=== PATIENT | male | born 1940 | race Caucasian/White ===

== ENCOUNTER → 2018-01-13 | Outpatient (CLI) | payer MEDICARE, OTHER | LOC: RAH 12:48 | PROVIDERS: ATTEND Internal Medicine | DX: N32.89 Other specified disorders of bladder (principal); Z85.528 Personal history of other malignant neoplasm of kidney; Z90.5 Acquired absence of kidney | CPT/HCPCS: 76770 ==

== ENCOUNTER → 2018-02-26 | Outpatient (CLI) | payer OTHER | END | disposition home or self-care (01) | LOC: STH 11:13 | PROVIDERS: ATTEND Internal Medicine Cardiovascular Disease | DX: I65.23 Occlusion and stenosis of bilateral carotid arteries (principal) | CPT/HCPCS: 93880 ==

== ENCOUNTER → 2019-04-23 | Outpatient (CLI) | payer OTHER | END | disposition home or self-care (01) | LOC: RAH 10:30 | PROVIDERS: ATTEND Urology | DX: C64.9 Malignant neoplasm of unspecified kidney, except renal pelvis (principal) | CPT/HCPCS: 76770 ==

== ENCOUNTER 2019-05-14 08:25 | Day surgery (SDC) | payer OTHER ==
[2019-05-12 15:13] VITALS: BP 124/65
[2019-05-12 15:13] LABS: BASOPHILS % (AUTO) 0.9 % (0.0-5.0); EOSINOPHILS % (AUTO) 2.7 % (0.0-8.0); LYMPHOCYTES % (AUTO) 17.7 % (21.0-51.0); MEAN CORPUSCULAR HEMOGLOBIN 30.7 pg (27.0-33.0); MEAN CORPUSCULAR HGB CONC 33.4 g/dL (32.0-36.0); MEAN CORPUSCULAR VOLUME 91.8 fL (79-99); MONOCYTES % (AUTO) 7.1 % (3.0-13.0); NEUTROPHILS % (AUTO) 71.6 % (40.0-77.0); NUCLEATED RED BLOOD CELLS 0.1 % (0.0-0.19); PLATELET COUNT (AUTO) 254 K/uL (130-400); RED BLOOD CELL COUNT(AUTO) 4.69 MIL/uL (4.50-6.20); RED CELL DISTRIBUTION WIDTH 14.5 % (11.0-15.5); WHITE BLOOD COUNT (AUTO) 8.5 K/uL (4.8-10.8)
[2019-05-12 15:27] LABS: CREATININE 1.4 mg/dL (0.5-1.5); POTASSIUM 4.5 mmol/L (3.5-5.1)
[2019-05-12 16:56] VITALS: BP 152/83
--- NOTE | 2019-05-13 13:20 | NUR ---
LABS ABNORMAL LABS FAXED TO DR. TAYLOR, NO FURTHER ORDERS GIVEN
[2019-05-14] VITALS (12 sets, daily range): BP systolic 127–168; BP diastolic 51–94
[~2019-05-14] VITALS: Ht 177.8 cm; Wt 134.3 kg
[~2019-05-14 08:25] MED LIST: ATORVASTA; CEFTRIAXONE SODIUM 1 GM IVP SCH; LISI-613 PO; [UNRECOGNIZED DRUG - OTHER]
[2019-05-14] MEDS ORDERED: LACTATED RINGERS 1000ML 1,000 ML IV ONE (09:36)
[2019-05-14] MEDS ORDERED: CEFTRIAXONE SODIUM 1 GM ONE (09:36)
[2019-05-14] MEDS ORDERED: ATOR40TA71 PO (10:24)
[2019-05-14] MEDS ORDERED: TAMS-1 PO (10:25)
[2019-05-14] MEDS ORDERED: LIDOCAINE PF 2% 5ML ABBOJECT ONE (11:05)
[2019-05-14] MEDS ORDERED: PROPOFOL 10 MG/ML 20ML VIAL IV ONE (11:05)
[2019-05-14] MEDS ORDERED: MIDAZOLAM HCL 1 MG/ML 2ML VIAL ONE (11:05)
[2019-05-14] MEDS ORDERED: FENTANYL CITRATE PF 50 MCG/1 ML 2ML VIAL ONE (11:05)
[2019-05-14] MEDS ORDERED: ONDANSETRON HCL 4 MG/2 ML VIAL ONE (11:05)
[2019-05-14] MEDS ORDERED: DEXAMETHASONE SOD PHOSPHATE 10MG/ML 1ML VIAL ONE (11:05)
[2019-05-14] MEDS ORDERED: ROCURONIUM 10MG/1ML SYR 10 MG/ML ML ONE (11:18)
[2019-05-14] MEDS ORDERED: OPIUM/BELLADONNA ALKALOIDS 1 EACH SUPP.RECT RC ONE (11:37)
[2019-05-14] MEDS ORDERED: NEOSTIGMINE 5MG/5ML SYR IV ONE (12:03)
[2019-05-14] MEDS ORDERED: GLYCOPYRROLATE 1 MG/5 ML SYRINGE ONE (12:03)
[2019-05-14] MEDS ORDERED: IPRATROPIUM/ALBUTEROL SULFATE 3 ML SOLUTION IH ONE (12:22)
[2019-05-14] MEDS ORDERED: METOCLOPRAMIDE 10 MG/2 ML VIAL ONE (12:38)
--- NOTE | 2019-05-14 13:00 | NUR ---
POST OP RECEIVED PT FROM PACU, S/P CYSTOSCOPY, DIRECT VISUL INTERNAL URETHROTOMY, TURP, PT ARRIVED WITH 18FREN[address] FC IN PLACE DRAINING RED COLOR URINE. DRESSING TO PENIS DRY AND INTACT, VS STABLE ON ARRIVAL.
[2019-05-14] MEDS ORDERED: PHENAZOPYRIDINE HCL 200 MG TABLET ONE (13:12)
--- NOTE | 2019-05-14 13:35 | NUR ---
DC DC INSTRUCTIONS GIVEN TO PT'S FRIEND DEENA WITH RX, INSTRUCTED ON F/U APPOINTMENT, NEW MEDS. AND LUNDBERG CARE. PT SEEMS ANXIOUS STATES "HE DIDN'T KNOW SURGERY WILL BE THIS UNCOMFORTABLE" . LUNDBERG LEG BAG IN PLACED. DRESSING TO PENIS AREA DRY AND INTACT, PIV REMOVED. PT WILL GET DRESS AND WILL BE DC HOME WITH FRIEND DEENA.
--- NOTE | 2019-05-14 13:40 | NUR ---
DC PT DC HOME VIA WC,NO DISTRESS NOTED. ACCOMPANIED BY HIS FRIEND TOM. LUNDBERG LEG BAG IN PLACE.
== END 2019-05-14 13:40 | disposition home or self-care (01) ==
LOC: DAH 08:25
PROVIDERS: ATTEND Urology
DX: N40.1 Benign prostatic hyperplasia with lower urinary tract symptoms (principal); N35.819 Other urethral stricture, male, unspecified site; R35.0 Frequency of micturition; I10 Essential (primary) hypertension; J44.9 Chronic obstructive pulmonary disease, unspecified; E66.9 Obesity, unspecified; Z68.41 Body mass index [BMI] 40.0-44.9, adult; Z85.528 Personal history of other malignant neoplasm of kidney; Z90.5 Acquired absence of kidney; Z79.899 Other long term (current) drug therapy; Z87.891 Personal history of nicotine dependence; Z98.890 Other specified postprocedural states
CPT/HCPCS: 36415; 52601; 80048; 85025; 88305; 93005; 94640; A4340; A4354; A4358; A4510; A4600; J0696; J1100; J2001; J2250; J2405; J2704; J2710; J2765; J3010; J3490; J7120 ×2

== ENCOUNTER 2020-10-20 10:19 | Emergency (ER) | payer OTHER ==
[~2020-10-20 10:19] MED LIST changes: +ATOR40TA71 PO; -ATORVASTA; -CEFTRIAXONE SODIUM 1 GM IVP SCH; +TAMS-1 PO; -[UNRECOGNIZED DRUG - OTHER]
== END 2020-10-20 11:45 | disposition home or self-care (01) ==
LOC: EDH 10:19
DX: R33.9 Retention of urine, unspecified (principal); I10 Essential (primary) hypertension; Z87.891 Personal history of nicotine dependence
CPT/HCPCS: 99281

== ENCOUNTER → 2021-02-26 | Outpatient (CLI) | payer OTHER ==
[~2021-02-26] MED LIST changes: -LISI-613 PO; +LISI20TA24 PO
[2021-02-26 11:47] LABS: CREATININE 1.5 mg/dL (0.5-1.5)
== END | disposition home or self-care (01) ==
LOC: LAB 11:02
PROVIDERS: ATTEND Internal Medicine Cardiovascular Disease
DX: I65.29 Occlusion and stenosis of unspecified carotid artery (principal); Z86.73 Personal history of transient ischemic attack (TIA), and cerebral infarction without residual deficits
CPT/HCPCS: 36415; 82565; 84520

== ENCOUNTER → 2021-04-12 | Outpatient (CLI) | payer OTHER ==
[~2021-04-12] VITALS: Ht 182.9 cm; Wt 127.0 kg
[~2021-04-12] MED LIST changes: +REGADENOSON 0.4 MG/5 ML PF SYG IVP SCH
== END | disposition home or self-care (01) ==
LOC: SHCH 08:38
PROVIDERS: ATTEND Internal Medicine Cardiovascular Disease
DX: I10 Essential (primary) hypertension (principal); R07.89 Other chest pain; R06.00 Dyspnea, unspecified; R10.9 Unspecified abdominal pain; R51.9 Headache, unspecified; M54.2 Cervicalgia
CPT/HCPCS: 78452; 93017; 96374; A9500 ×2

== ENCOUNTER 2021-05-03 08:43 | Emergency (ER) | payer OTHER ==
[~2021-05-03] VITALS: Ht 182.9 cm; Wt 129.3 kg
[~2021-05-03 08:43] MED LIST changes: +ASPI-1443 PO; +CLOP75TA32 PO; +LISI10TA24 PO; -LISI20TA24 PO; -REGADENOSON 0.4 MG/5 ML PF SYG IVP SCH; -TAMS-1 PO
[2021-05-03 08:48] VITALS: BP 108/60
[2021-05-03 09:34] LABS: BASOPHILS % (AUTO) 0.6 % (0.0-5.0); EOSINOPHILS % (AUTO) 6.9 % (0.0-8.0); HEMATOCRIT 32.7 % (42-54); LYMPHOCYTES % (AUTO) 15.3 % (21.0-51.0); MEAN CORPUSCULAR HEMOGLOBIN 29.8 pg (27.0-33.0); MEAN CORPUSCULAR HGB CONC 31.5 g/dL (32.0-36.0); MEAN CORPUSCULAR VOLUME 94.5 fL (79-99); MONOCYTES % (AUTO) 6.5 % (3.0-13.0); NEUTROPHILS % (AUTO) 70.1 % (40.0-77.0); PLATELET COUNT (AUTO) 198 K/uL (130-400); RED BLOOD CELL COUNT(AUTO) 3.46 MIL/uL (4.50-6.20); RED CELL DISTRIBUTION WIDTH 13.9 % (11.0-15.5); WHITE BLOOD COUNT (AUTO) 9.5 K/uL (4.8-10.8)
[2021-05-03 09:52] LABS: BILIRUBIN,TOTAL 0.7 mg/dL (0.2-1.0); CREATININE 1.5 mg/dL (0.5-1.5); INR 1.03 (0.85-1.15); POTASSIUM 4.5 mmol/L (3.5-5.1); PROTHROMBIN TIME 11.2 SEC (9.6-11.6); TOTAL PROTEIN, SERUM 6.4 g/dL (6.0-8.3)
== END 2021-05-03 16:49 | disposition home or self-care (01) ==
LOC: EDH 08:43
DX: I97.631 Postprocedural hematoma of a circulatory system organ or structure following cardiac bypass (principal); Z98.890 Other specified postprocedural states; Z79.82 Long term (current) use of aspirin; Z79.899 Other long term (current) drug therapy
CPT/HCPCS: 36415; 80053; 85025; 85610

== ENCOUNTER 2023-04-03 22:36 | Emergency (ER) | payer MEDICARE, OTHER ==
[~2023-04-03] VITALS: Ht 182.9 cm; Wt 123.4 kg
[2023-04-03] MEDS ORDERED: TAMSULOSIN HCL 0.4 MG CAP.ER.24H PO ONE (23:00)
[2023-04-03] MEDS ORDERED: TAMS-1 PO (23:00)
[2023-04-03 23:23] LABS: BASOPHILS % (AUTO) 0.9 % (0.0-5.0); EOSINOPHILS % (AUTO) 4.1 % (0.0-8.0); HEMATOCRIT 42.4 % (42-54); LYMPHOCYTES % (AUTO) 23.2 % (21.0-51.0); MEAN CORPUSCULAR HEMOGLOBIN 30.3 pg (27.0-33.0); MEAN CORPUSCULAR HGB CONC 32.8 g/dL (32.0-36.0); MEAN CORPUSCULAR VOLUME 92.6 fL (79-99); MONOCYTES % (AUTO) 8.2 % (3.0-13.0); NEUTROPHILS % (AUTO) 62.8 % (40.0-77.0); PLATELET COUNT (AUTO) 198 K/uL (130-400); RED BLOOD CELL COUNT(AUTO) 4.58 MIL/uL (4.50-6.20); RED CELL DISTRIBUTION WIDTH 13.7 % (11.0-15.5)
[2023-04-03 23:30] LABS: CREATININE 1.7 mg/dL (0.5-1.5); POTASSIUM 4.3 mmol/L (3.5-5.1)
[2023-04-03 23:35] LABS: ALBUMIN 3.6 g/dL (3.5-5.0); TOTAL PROTEIN, SERUM 6.9 g/dL (6.0-8.3)
[2023-04-03 23:41] VITALS: BP 145/76
== END 2023-04-04 00:05 | disposition home or self-care (01) ==
LOC: EDH 22:36
DX: R05.9 Cough, unspecified (principal); E86.0 Dehydration; M19.90 Unspecified osteoarthritis, unspecified site; I10 Essential (primary) hypertension; Z79.82 Long term (current) use of aspirin; Z79.899 Other long term (current) drug therapy
CPT/HCPCS: 36415; 71045; 80053; 85025

== ENCOUNTER → 2023-11-26 | Outpatient (CLI) | payer OTHER | END | disposition home or self-care (01) | LOC: SHCH 10:59 | PROVIDERS: ATTEND Internal Medicine Cardiovascular Disease | DX: I87.2 Venous insufficiency (chronic) (peripheral) (principal) | CPT/HCPCS: 93970 ==

== ENCOUNTER 2025-08-13 08:50 | Emergency (ER) | payer OTHER ==
[~2025-08-13] VITALS: Ht 182.9 cm; Wt 127.0 kg
[2025-08-13 08:52] VITALS: BP 145/96; PULSE 68; RESP 18; TEMP 98
[2025-08-13 09:27] LABS: APPEARANCE,URINE CLEAR (CLEAR); GLUCOSE, URINE (UA) NEGATIVE (NEGATIVE); LEUKOCYTE ESTERASE ,URINE NEGATIVE Leu/uL (NEGATIVE); NITRATE,URINE NEGATIVE (NEGATIVE); OCCULT BLOOD,URINE NEGATIVE (NEGATIVE)
[2025-08-13 09:28] LABS: ADD UA MICROSCOPIC NO
--- NOTE | 2025-08-13 09:30 | NUR ---
PT UPSET AND NONT WANTING TO WAIT FOR BLADDER SCAN OR URINE RESULTS. PRIMARY NURSE WAS MEDICATING A PATIENT AT THIS TIME. PT WALKED OUT ER WITHOUT SIGNING AMA FORM. PT ELOPED/.
--- NOTE | 2025-08-13 09:42 | ERN ---
ED Note History of Present Illness Stated Complaint: URINARY PROBLEM Chief Complaint: Urinary Retention Time Seen by MD: 08:52 Dictation: 84-year-old male presenting to emergency department with trouble urinating on and off has not had issues with his prostate before unable to void. Allergies: Coded Allergies: No Known Drug Allergies (Verified Allergy, Unknown, 05/12/19) Uncoded Allergies: ANTIHISTAMINES (Adverse Reaction, Unknown, UNKNOWN , 04/26/21) Home Meds Reported Medications Clopidogrel Bisulfate (Clopidogrel) 75 Mg Tablet, 75 MG PO DAILY, TAB 04/26/21 Lisinopril (Lisinopril) 10 Mg Tablet, 10 MG PO DAILY, TAB 04/26/21 Aspirin (Aspirin EC) 81 Mg Tablet.dr, 81 MG PO DAILY, TAB 04/26/21 Atorvastatin Calcium (Atorvastatin Calcium) 40 Mg Tablet, 40 MG PO HS, TAB 05/14/19 Past Medical History Past Medical History: Arthritis, Hypertension Surgical History: Unknown Surgical History Other: STENTS Review of System Dictation Constitutional: Negative for fever,chills, and weight loss Eyes: Negative for injury, pain,redness, and discharge ENT: Negative for injury,pain or swelling Cardiovascular: Negative for chest pain, palpitations, and edema Respiratory: Negative for shortness of breath, cough, and wheezing, Abdomen/GI: Negative for abdominal pain, nausea, vomiting, diarrhea, and constipation Back: Negative for injury and pain : Per HPI MS/Extremity: Negative for injury and deformity Skin: Negative for rash, and discoloration Neuro: Negative for headache, weakness, numbness, tingling, and seizure Psych: Negative for suicide ideation, homicidal ideation, and hallucinations Initial Vital Sign VS Vital Signs Date Time Temp Pulse Resp B/P (MAP) Pulse Ox O2 Delivery O2 Flow Rate FiO2 08/13/25 08:52 98.1 68 18 145/96 98 Room Air Physical Exam Dictation General: awake, alert, NAD Head/Face: Normocephalic, atraumatic Eyes: PERRL, EOMI, vision at baseline ENT: oral cavity clear, TMs clear, no signs of infection Neck: Trachea midline, supple, no nuchal rigidity Cardiovascular: RRR, normal S1/S2, No MRGs, no JVD Respiratory: CTAB, no respiratory distress, No rales or wheezes Abdomen: Soft, non-tender, non-distended, normal bowel sounds, no guarding or rebound. Skin: Warm, dry, normal turgor, no rash MS/Extremity: Pulses equal, no cyanosis, neurovascular intact, FROM Neuro: COAx4, GCS 15, strength 5/5, CN 2-12 intact, normal cerebellar exam, normal gait, Psych: Normal behavior, mood, and affect normal Results (Laboratory/Radiology) Laboratory/Radiology Laboratory Tests Test 08/13/25 09:05 Urine Color COLORLESS (YELLOW) Urine Appearance CLEAR (CLEAR) Urine pH 5.0 (5.0-8.0) Urine Specific [place] 1.015 (1.001-1.031) Urine Protein NEGATIVE mg/dL (NEGATIVE) Urine Glucose (UA) NEGATIVE mg/dL (NEGATIVE) Urine Ketones NEGATIVE mg/dL (NEGATIVE) Urine Occult Blood NEGATIVE (NEGATIVE) Urine Nitrate NEGATIVE (NEGATIVE) Urine Bilirubin NEGATIVE mg/dL (NEGATIVE) Urine Urobilinogen 0.2 mg/dL (0.2-1.0) Urine Leukocyte Esterase NEGATIVE Ruel/uL ED Course ED Course Orders Procedure Category Date Status Time Urinalysis Profile LAB 08/13/25 Complete 09:00 Vital Signs Date Time Temp Pulse Resp B/P (MAP) Pulse Ox O2 Delivery O2 Flow Rate FiO2 08/13/25 08:52 98.1 68 18 145/96 98 Room Air Medical Decision Making MDM Patient with acute urinary retention ordered a bladder scan and possible Kerr intervention however patient became upset and left against medical advice DX & DISP Disposition: AMA Departure Impression: Primary Impression: Acute urinary retention Condition: Stable Referrals: NICCI THORNE MD (PCP) HO VARGAS MD Aug 13, 2025 09:42
== END 2025-08-13 10:16 | disposition left against medical advice (07) ==
LOC: EDH 08:50
DX: R33.9 Retention of urine, unspecified (principal); I10 Essential (primary) hypertension; M19.90 Unspecified osteoarthritis, unspecified site; Z79.02 Long term (current) use of antithrombotics/antiplatelets; Z79.82 Long term (current) use of aspirin; Z79.899 Other long term (current) drug therapy
CPT/HCPCS: 81003; 99283

== ENCOUNTER 2025-08-19 02:00 | Emergency (ER) | payer OTHER ==
[~2025-08-19] VITALS: Ht 182.9 cm; Wt 123.4 kg
--- NOTE | 2025-08-19 02:10 | NUR ---
BLADDER SCANNER READING 12CC, ED MIDLEVEL AND ED MD MADE AWARE.
--- NOTE | 2025-08-19 02:15 | NUR ---
PATIENT REFUSED LAB WORK TO BE DRAWN, PATIENT WAS EDUCATED ON AND VERBALIZED UNDERSTANDING OF IMPORTANCE OF LABS DRAWN ORDERED, CONTINUED TO REFUSE, ED MIDLEVEL MADE AWARE.
--- NOTE | 2025-08-19 02:19 | ERN ---
ED Note History of Present Illness Stated Complaint: Patient comes in with urinary retention. He has said he had difficulty with BPH that has stated that he had a TURP procedure. Many many years ago denies any abdominal pain nausea or vomiting flank pain fevers chills no chestpain or shortness of breath patient states that he has has been stooling daily Chief Complaint: Urinary Retention Time Seen by MD: 02:32 Allergies: Coded Allergies: No Known Drug Allergies (Verified Allergy, Unknown, 05/12/19) Uncoded Allergies: ANTIHISTAMINES (Adverse Reaction, Unknown, UNKNOWN , 04/26/21) Home Meds Reported Medications Clopidogrel Bisulfate (Clopidogrel) 75 Mg Tablet, 75 MG PO DAILY, TAB 04/26/21 Lisinopril (Lisinopril) 10 Mg Tablet, 10 MG PO DAILY, TAB 04/26/21 Aspirin (Aspirin EC) 81 Mg Tablet.dr, 81 MG PO DAILY, TAB 04/26/21 Atorvastatin Calcium (Atorvastatin Calcium) 40 Mg Tablet, 40 MG PO HS, TAB 05/14/19 Past Medical History Past Medical History: Hypertension Surgical History: Other Surgical History Other: STENTS Review of System Dictation Constitutional: Negative for fever,chills, and weight loss Eyes: Negative for injury, pain,redness, and discharge ENT: Negative for injury,pain or swelling Cardiovascular: Negative for chest pain, palpitations, and edema Respiratory: Negative for shortness of breath, cough, and wheezing, Abdomen/GI: Negative for abdominal pain, nausea, vomiting, diarrhea, and constipation Back: Negative for injury and pain : Negative for injury, bleeding and discharge MS/Extremity: Negative for injury and deformity Skin: Negative for rash, and discoloration Neuro: Negative for headache, weakness, numbness, tingling, and seizure Psych: Negative for suicide ideation, homicidal ideation, and hallucinations Urinary retention Initial Vital Sign VS Vital Signs Date Time Temp Pulse Resp B/P (MAP) Pulse Ox O2 Delivery O2 Flow Rate FiO2 08/19/25 02:01 96.8 78 20 145/87 97 Room Air Physical Exam Dictation No wincing or grimacing change in facial expression on abdominal palpation. General: awake, alert, NAD Head/Face: Normocephalic, atraumatic Eyes: PERRL, EOMI, vision at baseline ENT: oral cavity clear, TMs clear, no signs of infection Neck: Trachea midline, supple, no nuchal rigidity Cardiovascular: RRR, normal S1/S2, No MRGs, no JVD Respiratory: CTAB, no respiratory distress, No rales or wheezes Abdomen: Soft, non-tender, non-distended, normal bowel sounds, no guarding or rebound. Skin: Warm, dry, normal turgor, no rash MS/Extremity: Pulses equal, no cyanosis, neurovascular intact, FROM Neuro: COAx4, GCS 15, strength 5/5, CN 2-12 intact, normal cerebellar exam, normal gait, Psych: Normal behavior, mood, and affect normal ED Course ED Course Orders Procedure Category Date Status Time Bladder Scan CPOE 08/19/25 Transmitted 02:12 Nurse Driven Kerr TIN 08/19/25 In Process Removal Pro 02:12 Cbc With Differential LAB 08/19/25 Logged 02:12 Basic Metabolic Panel LAB 08/19/25 Logged 02:12 Urinalysis Profile LAB 08/19/25 Logged 02:12 Vital Signs Date Time Temp Pulse Resp B/P (MAP) Pulse Ox O2 Delivery O2 Flow Rate FiO2 08/19/25 02:01 96.8 78 20 145/87 97 Room Air Medical Decision Making MDM Patient refused the blood work. He had 12 cc in the bladder scan. Refused Kerr intervention. MDM: Differential diagnosis: Rationale: Tests considered and ordered secondary to shared decision making include: Previous outside records reviewed: Old ER visits. Risk of complication and/or morbidity or mortality of patient management: None Medications-Per medication reconciliation Need for hospitalization: Patient does not meet criteria for hospitalization. Need for emergency major/minor surgery: No There are no social concerns with this patient. Prescription drug management Prescriptions will include symptomatic care Patient's prior external medical records from other ER visits were reviewed by me as indicated. Prior testing and results from previous visits were reviewed. Prior tests were taken into account with medical decision making and resource utilization, independent historian/historians were used to obtain complete medical history. I independently interpreted the test that were performed, results were reviewed by me and considered findings on radiology if ordered. Medical management and examination interpretation discussions were had by me with other qualified healthcare professionals as indicated for the patient's care. DX & DISP Disposition: Discharge Departure Impression: Primary Impression: Acute urinary retention Condition: Stable Referrals: SIMON HOUSTON MD (PCP) MALOU HOLLIS MD Aug 19, 2025 02:19
[2025-08-19 02:49] VITALS: BP 138/79; PULSE 68; RESP 18; TEMP 97.3; O2SAT 96
== END 2025-08-19 02:52 | disposition home or self-care (01) ==
LOC: EDH 02:00
DX: R33.8 Other retention of urine (principal); I10 Essential (primary) hypertension; Z79.02 Long term (current) use of antithrombotics/antiplatelets; Z79.82 Long term (current) use of aspirin; Z79.899 Other long term (current) drug therapy
CPT/HCPCS: 99284